=== PATIENT | male | born 1970 | race African-American/Black ===

== ENCOUNTER 2020-10-28 20:37 | Emergency (ER) | payer OTHER ==
[~2020-10-28] VITALS: Ht 190.5 cm; Wt 134.0 kg
[~2020-10-28 20:37] MED LIST: AMLO10TA80 PO; LIP40 PO
[2020-10-28 21:45] LABS: BASOPHILS % 0.6 % (0.0-2.0); EOSINOPHILS % 1.9 % (0.0-5.0); HEMATOCRIT. 39.4 % (42.0-52.0); HEMOGLOBIN. 13.4 g/dL (14.0-18.0); LYMPHOCYTES % 35.7 % (20.0-50.0); MEAN CORPUSCULAR VOLUME 76.1 fL (80.0-94.0); MEAN PLATELET VOLUME 7.6 fl (7.4-10.4); MONOCYTES % 6.1 % (2.0-8.0); NEUTROPHILS % 55.7 % (40.0-76.0); PLATELET 298 x1000/uL (130-400); RED BLOOD CELL COUNT 5.18 mill/uL (4.7-6.1); RED CELL DISTRIBUTION WIDTH 15.6 % (11.6-14.6)
[2020-10-28 21:51] LABS: CHLORIDE 107 mEq/L (98-107)
[2020-10-29] MEDS ORDERED: FURO-152 MT (02:33)
[2020-10-29 02:45] VITALS: BP 155/102
[2020-10-29] MEDS ORDERED: IOHEXOL-350 100 ML BOTTLE ONE (05:55)
== END 2020-10-29 03:02 | disposition home or self-care (01) ==
LOC: ER 20:37
DX: R60.0 Localized edema (principal); I10 Essential (primary) hypertension
CPT/HCPCS: 36415; 71045; 71275; 80053; 83880; 84484; 85025; 85379; 93005; 93970; 99285; Q9967